=== PATIENT | female | born 1965 | race Caucasian/White ===

== ENCOUNTER 2019-12-04 | Emergency (ER) | payer OTHER, BC ==
[2019-12-04] MEDS ORDERED: CYMBALTA20 MG PO (13:47)
[2019-12-04] MEDS ORDERED: XANAX0.5 MG PO (13:47)
[2019-12-04] MEDS ORDERED: ESTRACE2 M1 PO (13:49)
[2019-12-04] MEDS ORDERED: PERCOCET 10/31 COMBO PO (14:41)
== END 2019-12-04 15:31 | disposition home or self-care (01) | DRG 552 ==
DX: M54.2 Cervicalgia (principal); M54.5 Low back pain; M54.6 Pain in thoracic spine; M25.521 Pain in right elbow; M25.551 Pain in right hip; V49.50XA Passenger injured in collision with unspecified motor vehicles in traffic accident, initial encounter

== ENCOUNTER 2019-12-07 12:55 | Emergency (ER) | payer OTHER, BC ==
[~2019-12-07 12:55] MED LIST: CYMBALTA20 MG PO; ESTRACE2 M1 PO; PERCOCET 10/31 COMBO PO; XANAX0.5 MG PO
[2019-12-07] MEDS ORDERED: IBUPROFEN600 MG PO (13:52)
[2019-12-07] MEDS ORDERED: SOMA350 MG PO (13:52)
[2019-12-07 14:04] VITALS: BP 144/88
== END 2019-12-07 14:07 | disposition home or self-care (01) | DRG 948 ==
LOC: ED 12:55
DX: G89.11 Acute pain due to trauma (principal); R07.89 Other chest pain; M54.2 Cervicalgia; M54.9 Dorsalgia, unspecified; M25.552 Pain in left hip; M25.522 Pain in left elbow; V89.2XXA Person injured in unspecified motor-vehicle accident, traffic, initial encounter

== ENCOUNTER 2020-07-23 13:36 | Emergency (ER) | payer BC ==
[~2020-07-23] VITALS: Ht 165.1 cm; Wt 60.0 kg
[~2020-07-23 13:36] MED LIST changes: +IBUPROFEN600 MG PO; +SOMA350 MG PO
[2020-07-23 14:22] LABS: HEMATOCRIT 38.3 % (37.0-47.0); IMMATURE GRANULOCYTES 0.1 % (0.0-5.0); MEAN CELL VOLUME 88.9 fL CALC (80.0-100.0); MEAN CORPUSCULAR HGB 30.2 pG CALC (26.0-32.0); MEAN CORPUSCULAR HGB CONC 33.9 g/dL CAL (32.0-36.0); NEUT# 4.73 thou/uL (2.00-7.15); RED BLOOD COUNT 4.31 mill/uL (4.20-5.60); RED CELL DISTRI WIDTH 12.4 % (11.5-15.5)
[2020-07-23 14:42] LABS: ALBUMIN 4.3 g/dL (3.2-5.0); ALKALINE PHOSPHATASE 56 u/l (38-126); ANION GAP 14 (6-22 (CALC)); BILIRUBIN, TOTAL 0.2 mg/dL (0.0-1.4); BUN 9 mg/dL (7-17); BUN/CREATININE RATIO 13 (12-20 (CALC)); CARBON DIOXIDE 25 mmol/l (22-30); CHLORIDE 108 mmol/l (95-108); CREATININE 0.7 mg/dL (0.5-1.0); ETHYL ALCOHOL 232 mg/dl (0-30); GFR > 60 ML/MIN (>=60 (CALC)); GFR FOR AFR.AMER. > 60 ML/MIN (>=60 (CALC)); POTASSIUM 3.9 mmol/l (3.5-5.1); SGOT/AST 37 u/l (14-36); SODIUM 142 mmol/l (137-146)
[2020-07-23 14:43] LABS: INTERNATIONAL NORMALIZED RATIO 0.9 RATIO (0.7-1.3)
[2020-07-23 15:43] LABS: URINE BILIRUBIN - DIPSTICK NEGATIVE (NEGATIVE); URINE BLOOD DIPSTICK NEGATIVE (NEGATIVE); URINE COLOR YELLOW; URINE GLUCOSE - DIPSTICK NEGATIVE (NEGATIVE); URINE KETONE NEGATIVE (NEGATIVE); URINE LEUK ESTERASE NEGATIVE (NEGATIVE); URINE PROTEIN - DIPSTICK NEGATIVE (NEG-TRACE); URINE SPECIFIC GRAVITY <=1.005; URINE UROBILINOGEN - DIPSTICK 0.2 E.U./dL (0.2)
[2020-07-23 15:47] LABS: URINE NITRITE - DIPSTICK POSITIVE (Negative)
[2020-07-23 15:55] LABS: URINE BACTERIA FEW hpf; URINE RBC 0-2 RBC/hpf (0-5); URINE SQUAMOUS EPITHELIAL CELL FEW EPI/hpf (0-FEW); URINE WBC 0-2 WBC/hpf (0-5)
[2020-07-23 17:35] VITALS: BP 110/69
== END 2020-07-23 18:35 | disposition home or self-care (01) | DRG 897 ==
LOC: ED 13:36
PROVIDERS: Student in an Organized Health Care Education/Training Program
DX: F10.129 Alcohol abuse with intoxication, unspecified (principal); D49.6 Neoplasm of unspecified behavior of brain; F41.9 Anxiety disorder, unspecified; Y90.7 Blood alcohol level of 200-239 mg/100 ml; R82.71 Bacteriuria

== ENCOUNTER 2020-07-27 18:05 | Emergency (ER) | payer BC ==
[~2020-07-27] VITALS: Ht 165.1 cm; Wt 75.0 kg
[2020-07-27 18:33] LABS: HEMATOCRIT 38.6 % (37.0-47.0); HEMOGLOBIN 13.3 g/dl (12.0-16.0); IMMATURE GRANULOCYTES 0.2 % (0.0-5.0); MEAN CELL VOLUME 86.9 fL CALC (80.0-100.0); MEAN CORPUSCULAR HGB CONC 34.5 g/dL CAL (32.0-36.0); NEUT# 5.15 thou/uL (2.00-7.15); RED BLOOD COUNT 4.44 mill/uL (4.20-5.60); RED CELL DISTRI WIDTH 12.2 % (11.5-15.5)
[2020-07-27 18:51] LABS: ALBUMIN 4.5 g/dL (3.2-5.0); ALKALINE PHOSPHATASE 63 u/l (38-126); ANION GAP 18 (6-22 (CALC)); BUN 14 mg/dL (7-17); BUN/CREATININE RATIO 17 (12-20 (CALC)); CARBON DIOXIDE 23 mmol/l (22-30); CHLORIDE 103 mmol/l (95-108); CREATININE 0.8 mg/dL (0.5-1.0); ETHYL ALCOHOL 251 mg/dl (0-30); GFR > 60 ML/MIN (>=60 (CALC)); GFR FOR AFR.AMER. > 60 ML/MIN (>=60 (CALC)); POTASSIUM 4.6 mmol/l (3.5-5.1); SGOT/AST 44 u/l (14-36); SODIUM 140 mmol/l (137-146); TOTAL PROTEIN 8.2 g/dL (6.3-8.2)
[2020-07-27 18:53] LABS: BILIRUBIN, TOTAL 0.3 mg/dL (0.0-1.4)
[2020-07-27 20:14] VITALS: BP 98/66
== END 2020-07-27 20:15 | disposition short-term general hospital (02) | DRG 897 ==
LOC: ED 18:05
DX: F10.129 Alcohol abuse with intoxication, unspecified (principal); C71.9 Malignant neoplasm of brain, unspecified; Y90.8 Blood alcohol level of 240 mg/100 ml or more; F41.9 Anxiety disorder, unspecified

== ENCOUNTER 2021-03-31 18:09 | Emergency (ER) | payer SELFPAY ==
[~2021-03-31 18:09] MED LIST changes: +BACLOFEN20 MG PO; +ESTRADIOL0.025 MG/1 TOP
[2021-03-31 19:50] VITALS: BP 137/84
== END 2021-03-31 19:48 | disposition home or self-care (01) | DRG 605 ==
LOC: ED 18:09
DX: S80.12XA Contusion of left lower leg, initial encounter (principal); S80.812A Abrasion, left lower leg, initial encounter; F41.9 Anxiety disorder, unspecified; W01.198A Fall on same level from slipping, tripping and stumbling with subsequent striking against other object, initial encounter; Y92.009 Unspecified place in unspecified non-institutional (private) residence as the place of occurrence of the external cause

== ENCOUNTER 2021-05-19 18:40 | Emergency (ER) | payer SELFPAY ==
[~2021-05-19] VITALS: Ht 170.2 cm; Wt 75.0 kg
[2021-05-19 19:52] LABS: HEMATOCRIT 38.5 % (37.0-47.0); IMMATURE GRANULOCYTES 0.1 % (0.0-5.0); MEAN CELL VOLUME 91.4 fL CALC (80.0-100.0); MEAN CORPUSCULAR HGB 30.9 pG CALC (26.0-32.0); MEAN CORPUSCULAR HGB CONC 33.8 g/dL CAL (32.0-36.0); NEUT# 4.25 thou/uL (2.00-7.15); RED BLOOD COUNT 4.21 mill/uL (4.20-5.60)
[2021-05-19 20:07] LABS: ALBUMIN 4.5 g/dL (3.2-5.0); ALKALINE PHOSPHATASE 73 u/l (38-126); ANION GAP 16 (6-22 (CALC)); BILIRUBIN, TOTAL 0.4 mg/dL (0.0-1.4); BUN 12 mg/dL (7-17); BUN/CREATININE RATIO 15 (12-20 (CALC)); CARBON DIOXIDE 20 mmol/l (22-30); CHLORIDE 103 mmol/l (95-108); CREATININE 0.8 mg/dL (0.5-1.0); ETHYL ALCOHOL 281 mg/dl (0-30); GFR > 60 ML/MIN (>=60 (CALC)); GFR FOR AFR.AMER. > 60 ML/MIN (>=60 (CALC)); LIPASE 499 u/l (23-300); MAGNESIUM 2.1 mg/dL (1.6-2.3); POTASSIUM 3.9 mmol/l (3.5-5.1); SGOT/AST 43 u/l (14-36); SODIUM 136 mmol/l (137-146); TOTAL PROTEIN 8.3 g/dL (6.3-8.2)
[2021-05-19 20:31] VITALS: BP 122/72
== END 2021-05-19 20:42 | disposition home or self-care (01) | DRG 605 ==
LOC: ED 18:40
PROVIDERS: Family Medicine
DX: S00.83XA Contusion of other part of head, initial encounter (principal); S00.81XA Abrasion of other part of head, initial encounter; R74.8 Abnormal levels of other serum enzymes; F10.129 Alcohol abuse with intoxication, unspecified; F41.9 Anxiety disorder, unspecified; W18.39XA Other fall on same level, initial encounter; Y92.410 Unspecified street and highway as the place of occurrence of the external cause; Z85.841 Personal history of malignant neoplasm of brain

== ENCOUNTER 2022-05-05 12:18 | Emergency (ER) | payer SELFPAY ==
[~2022-05-05] VITALS: Ht 170.2 cm; Wt 59.1 kg
[2022-05-05 12:26] VITALS: BP 127/84
[2022-05-05 12:30] VITALS: BP 148/96
[2022-05-05] MEDS ORDERED: KEFLEX500 MG PO (12:43)
[2022-05-05] MEDS ORDERED: ULTRAM50 M1 PO (12:43)
[2022-05-05 12:45] VITALS: BP 148/91
[2022-05-05 13:01] VITALS: BP 112/92
== END 2022-05-05 13:08 | disposition home or self-care (01) | DRG 605 ==
LOC: ED 12:18
DX: S81.811A Laceration without foreign body, right lower leg, initial encounter (principal); S61.411A Laceration without foreign body of right hand, initial encounter; W25.XXXA Contact with sharp glass, initial encounter; Y93.89 Activity, other specified; Y92.009 Unspecified place in unspecified non-institutional (private) residence as the place of occurrence of the external cause

== ENCOUNTER 2024-02-06 12:37 | Emergency (ER) | payer SELFPAY ==
[~2024-02-06] VITALS: Ht 170.2 cm; Wt 55.8 kg
[~2024-02-06 12:37] MED LIST changes: +GABAPENTIN300 M2 PO; +KEFLEX500 MG PO; +ULTRAM50 M1 PO
[2024-02-06 13:45] VITALS: BP 154/84
[2024-02-06 14:00] VITALS: BP 169/81
[2024-02-06] MEDS ORDERED: DOXYCYCLINE MO100 MG PO (14:11)
[2024-02-06] MEDS ORDERED: HYDROCORTISONE2.5 % EX (14:22)
[2024-02-06] MEDS ORDERED: KEFLEX500 MG PO (14:22)
[2024-02-06 14:29] VITALS: BP 142/87
[2024-02-06 14:35] VITALS: BP 142/87
== END 2024-02-06 14:38 | disposition home or self-care (01) | DRG 607 ==
LOC: ED 12:37
DX: L28.0 Lichen simplex chronicus (principal); F41.9 Anxiety disorder, unspecified; F17.200 Nicotine dependence, unspecified, uncomplicated; Z85.841 Personal history of malignant neoplasm of brain